=== PATIENT | female | born 1960 | race Caucasian/White ===

== ENCOUNTER 2016-09-12 16:00 | Inpatient (IN) | payer OTHER ==
[~2016-09-12] VITALS: Ht 172.7 cm; Wt 127.0 kg
--- NOTE | ~2016-09-12 | PN ---
Unit #: [id number] #: [id number] Patient: ERICH FIGUEROA [id number] [facility] [address] [place] [address] [id number] I MR#: [id number] NAME: ERICH FIGUEROA ROOM: [facility] Age: 56 Sex: F Admission Date: 09/12/2016 : 1960 Attending Physician: Amanuel Merchant M.D. Admitting Physician: Amanuel Merchant M.D. Primary Care Physician: Primary Care Physician Sangeetha HANSEN PROGRESS NOTES DATE September 17, 2016 DISCUSSION Ms. Figueroa is a 56-year-old white female, who was seen today and chart was reviewed and the case was discussed with the staff. She has been anxious, withdrawn, and rather seclusive to herself. Meanwhile, she has been cooperative with the treatment recommendations, and has been taking the medications and tolerating them fairly well with no reported side effects. MENTAL STATUS EXAMINATION Middle-aged white female, who was casually dressed with fair personal hygiene and appears to be in no acute distress or discomfort. The patient was awake and alert with intact orientation. Her mood is anxious with a congruent affect. The patient denies any suicidal or homicidal ideations. Her insight and judgment remain slightly impaired. TREATMENT PLAN 1. We will continue her on her current medications and treatment protocol, and will monitor her response to the medications, and make further adjustments as needed. 2. We will continue to followup. Dictated by... Paula Wilkins/cecy TD: 09/17/2016 11:10 JOB #: [id number] Unit #: [id number] #: [id number] Patient: ERICH FIGUEROA PROGRESS NOTES Page 1 of 1 X Amanuel Merchant MD PROGRESS NOTE
--- NOTE | ~2016-09-12 | PA ---
Unit #: [id number] #: [id number] Patient: ERICH DODD [id number] [facility] [address] [place] [address] [id number] I MR#: [id number] NAME: ERICH DODD ROOM: P252 Age: 56 Sex: F Admission Date: 09/12/2016 : 1960 Date of Assessment: Attending Physician: Amanuel Merchant M.D. Admitting Physician: Amanuel Merchant M.D. Primary Care Physician: Primary Care Physician No PSYCHIATRIC ASSESSMENT DATE OF SERVICE 09/13/2016. IDENTIFYING DATA Ms. Dodd is a 56-year-old white female, who is a resident of [place], [place], and is known to us from previous encounter and was self-referred to the hospital. CHIEF COMPLAINT "I've been diagnosed with bipolar disorder and I want to ." HISTORY OF PRESENT ILLNESS Ms. Dodd is a 56-year-old white female, who reports that she has been diagnosed with bipolar disorder and borderline personality disorder, in [place], [place], and she has been in [place], [place], since 2009 and has not been on her medication and has been decompensating and does report increasing depression, anxiety, irritability, feelings of hopelessness and helplessness, and suicidal ideations and plan and that she wants to and stated that she does not have any hope and reports having racing thoughts and anxiety and also reports that at times she has grandiose thoughts. She was seen to be a significant danger to self and as such, a recommendation for inpatient level of care for safety and stabilization was made and the patient was transferred to us. SUBSTANCE ABUSE HISTORY The patient reports history of alcohol, cannabis, and cocaine abuse, but denies any current ongoing substance abuse issues. PAST PSYCHIATRIC HISTORY The patient has had a history of inpatient psychiatric hospitalization in [place] and at [facility] and has had outpatient treatment in the past. However, currently, she is not active in any treatment program, is not seeing a psychiatrist, and is not taking any psychotropic medications. PAST MEDICAL HISTORY The patient's medical history is significant for asthma. ALLERGIES Penicillin, sulfa drugs, and latex. CURRENT MEDICATIONS Albuterol. Unit #: [id number] #: [id number] Patient: ERICH DODD PERSONAL AND SOCIAL HISTORY A 56-year-old white female, who reports that she is and single and is currently homeless and has poor social support system. MENTAL STATUS EXAMINATION Middle-aged white female, who was casually dressed with fair personal hygiene, appears to be in no acute distress or discomfort. She was awake and alert on interaction with intact orientation. Her mood was anxious and depressed with a congruent affect. Her speech was slow and restricted in content. Her thought processes were disorganized with some looseness of associations and paranoid ideations and suicidal ideations. Her insight and judgment remain significantly impaired. DIAGNOSTIC IMPRESSION Psychiatric: Bipolar disorder, most recent episode depressed, recurrent, moderate, without psychotic features. Medical: Asthma. Stressors: Moderate psychosocial stressors. TREATMENT PLAN 1. The patient has presented with a history of mood disorder and has been decompensating and will need inpatient hospitalization for safety and stabilization. We will start her back on her home medications. We will adjust the medications and monitor response. 2. Supportive therapy was provided to the patient. 3. Safe, structured, and nourishing environment will be provided. ESTIMATED LENGTH OF STAY 4 to 5 days. ABILITY TO HELP SELF Limited. WILLINGNESS TO HELP SELF The patient appears to be willing to help self. STRENGTHS 1. Communicative. 2. Cooperative. PROBLEMS 1. Chronic dysphoric symptoms. 2. Chronic chemical dependency. 3. Poor social support system. DISCHARGE CRITERIA This will be contingent upon the patient's ability to go through detox without having any significant withdrawal symptoms as well as her ability to stay safe to herself, particularly after discharge from the hospital. Dictated by... Paula Wilkins/andre TD: 09/13/2016 19:16 JOB #: [id number] Unit #: [id number] #: [id number] Patient: ERICH DODD PSYCHIATRIC ASSESSMENT Page 1 of 1 X Amanuel Merchant MD X PSYCHIATRIC ASSESSMENT
--- NOTE | ~2016-09-12 | DS ---
Unit #: [id number] #: [id number] Patient: ERICH DODD [id number] [place] [address] [id number] I MR#: [id number] NAME: ERICH DODD ROOM: [facility] Age: 56 Sex: F Admission Date: 09/12/2016 : 1960 Discharge Date: 09/18/2016 Attending Physician: Amanuel Merchant M.D. DISCHARGE SUMMARY IDENTIFYING DATA Ms. Dodd is a 56-year-old white female who is a resident of [place], [place], and is known to us from previous encounter, who was brought to the hospital on an involuntary basis. DISCHARGE DIAGNOSES PSYCHIATRIC: Bipolar disorder, most recent episode depressed, recurrent, moderate, without psychotic features. MEDICAL: Asthma. STRESSORS: Moderate psychosocial stressors. HISTORY OF PRESENT ILLNESS Same as in initial psychiatric evaluation. PAST PSYCHIATRIC HISTORY Same as in initial psychiatric evaluation. PAST MEDICAL HISTORY Same as in initial psychiatric evaluation. HOSPITAL COURSE The patient was admitted to the adult psychiatric unit at [facility] and was oriented to the hospital environment. Routine p.r.n. medications were initiated, and she was started back on her home medications. Depakote was initiated as a mood stabilizer. Initially, I started her on Celexa, but she stated she has tried that in the past and it does not really help her and she requested Wellbutrin which was started at 150 mg in the morning with good therapeutic outcome without any tolerability issues and as such, we have decided that she will be discharged and will continue treatment on an outpatient basis. DISCHARGE MEDICATIONS 1. Depakote 500 mg twice daily for bipolar. 2. Wellbutrin XL 150 mg in the morning for depression. DISCHARGE CONDITION Stable. PROGNOSIS Fair. Dictated by... Unit #: [id number] #: [id number] Patient: ERICH DODD Amanuel Merchant M.D. IAA/am TD: 09/19/2016 15:55 JOB #: [id number] DISCHARGE SUMMARY Page 1 of 1 X Amanuel Merchant MD X DISCHARGE SUMMARY
--- NOTE | ~2016-09-12 | PN ---
Unit #: [id number] #: [id number] Patient: ERICH FIGUEROA [id number] [facility] [address] [place] [address] [id number] I MR#: [id number] NAME: ERICH FIGUEROA ROOM: [facility] Age: 56 Sex: F Admission Date: 09/12/2016 : 1960 Attending Physician: Amanuel Merchant M.D. Admitting Physician: Amanuel Merchant M.D. Primary Care Physician: Primary Care Physician Sangeetha HANSEN PROGRESS NOTES DATE 09/14/2016 DISCUSSION Ms. Figueroa is a 56-year-old white female with ____ disorder who was seen today and chart was reviewed and case was discussed with the staff. She reports being anxious and depressed and does report feelings of hopelessness and helplessness. Meanwhile, she has been taking medications and tolerating them fairly well with no reported side effects. MENTAL STATUS EXAMINATION Middle-aged white female who was casually dressed with fair personal hygiene and appears to be in no acute distress or discomfort. She was awake and alert on interaction with intact orientation. Her mood was anxious and depressed with congruent affect. Her speech is slow and goal-directed. She reports having suicidal ideation but denies any homicidal ideations. Her insight and judgement remains slightly impaired. TREATMENT PLAN 1. Will continue on current treatment protocol. Will monitor her response to the medications and make further adjustments as needed. 2. Will continue to follow up. Dictated by... Paula Wilkins/venkat TD: 09/14/2016 22:13 JOB #: [id number] Unit #: [id number] #: [id number] Patient: ERICH FIGUEROA PROGRESS NOTES Page 1 of 1 X Amanuel Merchant MD PROGRESS NOTE
--- NOTE | ~2016-09-12 | PN ---
Unit #: [id number] #: [id number] Patient: ERICH FIGUEROA [id number] [facility] [address] [place] [address] [id number] I MR#: [id number] NAME: ERICH FIGUEROA ROOM: [facility] Age: 56 Sex: F Admission Date: 09/12/2016 : 1960 Attending Physician: Amanuel Merchant M.D. Admitting Physician: Amanuel Merchant M.D. Primary Care Physician: Primary Care Physician Sangeetha HANSEN PROGRESS NOTES DATE OF SERVICE 09/16/2016 DISCUSSION Ms. Figueroa is a 56-year-old white female who was seen today. Chart was reviewed and case was discussed with the staff. She has been anxious, withdrawn, depressed, and rather seclusive to herself. Meanwhile, she has been cooperative with treatment recommendations and has been taking the medications and tolerating them fairly well with no reported side effects. MENTAL STATUS EXAMINATION Middle-aged white female who is casually dressed with fair personal hygiene, appears to be in no acute distress or discomfort. She was awake and alert on interaction with intact orientation. Her mood is anxious with a congruent affect. She denies any suicidal or homicidal ideations. Her insight and judgment remain slightly impaired. TREATMENT PLAN 1. We will continue her on her current medications and treatment protocol. We will monitor her response to the medications and make further adjustments as needed. 2. We will continue to follow up. Dictated by... Paula Wilkins/bzg TD: 09/16/2016 14:36 JOB #: [id number] [facility] PROGRESS NOTES Page 1 of 1 X Amanuel Merchant MD PROGRESS NOTE
--- NOTE | ~2016-09-12 | HP ---
Unit #: [id number] #: [id number] Patient: NIYAH FIGUEROA [id number] [facility] [address] [place] [address] [id number] I MR#: [id number] NAME: NIYAH FIGUEROA ROOM: P252 Age: 56 Sex: F Admission Date: 09/12/2016 : 1960 Attending Physician: Amanuel Merchant M.D. Admitting Physician: Amanuel Merchant M.D. Primary Care Physician: Primary Care Physician No HISTORY AND PHYSICAL HISTORY AND PHYSICAL COMPLETED 09/13/2016 HISTORY OF PRESENT ILLNESS Niyah is a 56-year-old female, admitted on 09/12/2016 to [facility] for psychosis. PAST MEDICAL HISTORY 1. Obesity. 2. Endometriosis. 3. Asthma. PAST SURGICAL HISTORY Cholecystectomy and endometrial ablation. SOCIAL HISTORY She smokes one pack of cigarettes daily, reports a history of alcohol use and history of marijuana use. She is currently and homeless. FAMILY HISTORY Noncontributory. REVIEW OF SYSTEMS CONSTITUTIONAL: No fever or chills. HEENT: Denies any sore throat, ear pain or runny nose. CARDIOVASCULAR: Denies chest pain, irregular heart rhythm or palpitations. CHEST: Denies shortness of breath or cough. No hemoptysis. GASTROINTESTINAL: Denies nausea, vomiting, diarrhea or chronic constipation. ENDOCRINE: Denies history of increased thirst or urination. No recent significant weight loss or gain. GENITOURINARY: Denies dysuria, frequency, or hematuria. SKIN: Denies any rashes. HEMATOLOGIC: Denies history of increased bleeding or bruising. MUSCULOSKELETAL: Denies any hot, swollen joints. No generalized muscle pain. NEUROLOGIC: Denies problems with vision or speech. No frequent, severe headaches. No numbness, tingling or weakness in any extremities. Denies loss of bladder or bowel control. CURRENT MEDICATIONS Albuterol inhaler Unit #: [id number] #: [id number] Patient: NIYAH FIGUEROA ALLERGIES Penicillin, sulfa, and latex. PHYSICAL EXAMINATION GENERAL: Alert, oriented, and in no acute distress. VITAL SIGNS: Blood pressure 133/81, heart rate 81, temperature 98.4. HEIGHT: 5 feet 8 inches. WEIGHT: 250 pounds. SKIN: Warm and dry without rash or lesion. HEENT: Normocephalic. TMs not viewed. Oral and nasal passages clear. Conjunctivae clear. PERRLA. EOMs intact. NECK: Supple without lymphadenopathy or thyromegaly. HEART: Regular rate and rhythm without murmur. LUNGS: Clear. ABDOMEN: Soft, nontender. : Not done. EXTREMITIES: No evidence of cyanosis, clubbing or edema. Moves all without focal deficit. NEUROLOGICAL: Grossly within normal limits. Cranial Nerves: II: Visual eller are intact. III, IV AND : Extraocular movements are intact. Pupils are equal, round and reactive to light. V: Facial sensation is grossly normal. VII: Facial movements and expression are normal. VIII: Auditory acuity grossly intact. IX, X: Uvula is midline. Phonation is normal. XI: Patient shrugs shoulders and turns head normally. XII: Tongue protrudes in the midline. Sensory and Motor Function: Sensory and motor sensation is grossly normal. Motor: moves all extremities well. Coordination: Gait is normal. Deep Tendon Reflexes: Intact. IMPRESSION 1. Psychiatric admission. 2. Obesity. 3. Endometriosis. 4. Asthma. RECOMMENDATIONS Psychiatric, per psychiatrist. MEDICAL No contraindications to participating in facility's activities. MEDICAL PROGNOSIS Good. MEDICAL CONDITION Stable. Dictated by... Maddy Law TD: 09/13/2016 12:30 JOB #: [id number] Unit #: [id number] #: [id number] Patient: NIYAH FIGUEROA HISTORY AND PHYSICAL Page 1 of 1 X LEONIDES SIMENTAL APRN X HISTORY AND PHYSICAL
--- NOTE | ~2016-09-12 | CO ---
Unit #: [id number] #: [id number] Patient: ERICH FIGUEROA [id number] [place] [address] [id number] I MR#: [id number] NAME: ERICH FIGUEROA ROOM: [facility] Age: 56 Sex: F Admission Date: 09/12/2016 : 1960 Attending Physician: Amanuel Merchant M.D. Consultation Date: 09/18/2016 CONSULTATION REPORT REASON FOR CONSULTATION Elevated blood pressure. HISTORY OF PRESENT ILLNESS The patient is a 56-year-old, morbidly obese female, whom we were asked to see secondary to elevated blood pressure, systolic ranges have been anywhere from the 130s to 170s. We were asked to evaluate and consideration for possible diagnosis of hypertension and/or further medical management. Upon discussion and review with the patient, she states that she does not really follow up with the primary care physician secondary to insurance issues as well as she feels although she has different positions while she goes to a clinic that only accepts passport. She states that she has a strong family history of coronary artery disease, hypertension, myocardial infarction as well as stroke history. She has no objections to medications, but she states that she formally has not been diagnosed with hypertension. She states that recently she has had increased anxiety while at work. While here, she has been placed on routine medications as per Psychiatry. She feels much better at the present time. She denies any chest pain, headaches, visual changes, and/or any palpitations. She states she has not had a routine physical by primary care physician in several years. FAMILY HISTORY Noted positive for hypertension, coronary artery disease, stroke. HOME MEDICATIONS Did not reveal any hypertensive medications. INITIAL IMPRESSION 1. Likely essential hypertension. 2. Morbid obesity. 3. Underlying mental illness/psychiatric admission. PLAN At this point, my recommendation would be for a low-dose blood pressure medication, perhaps consideration can be given to Norvasc 2.5 mg p.o. daily on a daily basis, given her strong family history as well as positive for genetic predisposition, elevated BMI and certainly with her age being greater than 50. There is 90% chance that she likely will develop hypertension and it would be khoury and pertinent to start antihypertensive medications early. I have discussed the risks and benefits of these medications. She expresses understanding and agreement. I have also reinforced that although we cannot control who she will follow Unit #: [id number] #: [id number] Patient: ERICH FIGUEROA up with as an outpatient, but secondary to insurance reasons. A primary care physician visit at time of discharge within 7 to 10 days to review blood pressures and/or possibly home blood pressure monitor would be advised. She expressed understanding, therefore I will recommend Norvasc 2.5 mg p.o. daily at time of discharge. Dictated by... Paula Jefferson/andre TD: 09/18/2016 17:46 JOB #: [id number] CONSULTATION REPORT Page 1 of 1 X Ramos Valentine MD X CONSULTATION REPORT
--- NOTE | ~2016-09-12 | PN ---
Unit #: [id number] #: [id number] Patient: ERICH FIGUEROA [id number] [facility] [address] [place] [address] [id number] MR#: [id number] NAME: ERICH FIGUEROA ROOM: [facility] Age: 56 Sex: F Admission Date: 09/12/2016 : 1960 Attending Physician: Amanuel Merchant M.D. Admitting Physician: Amanuel Merchant M.D. Primary Care Physician: Primary Care Physician Sangeetha ALDRIDGE NOTES DATE September 15, 2016 DISCUSSION Ms. Figueroa is a 56-year-old white female, with mood disorder, who was seen today and the chart was reviewed and the case was discussed with the staff. She has been anxious, withdrawn, depressed, and rather seclusive to herself and reports not feeling good and she was started on Celexa but she has tried that in the past and it does not work for her, and so she has not been able to see much benefit. And has been expressing persistent feelings of hopelessness and helplessness. However, she has been going to therapy groups and she has been participating. MENTAL STATUS EXAMINATION Middle-aged white female, who was casually dressed with fair personal hygiene and appears to be in no acute distress or discomfort. The patient was awake and alert with impaired attention and concentration. Her mood was anxious and depressed with a congruent affect. The patient reports some suicidal ideation but denies any homicidal ideations. Her insight and judgment remain slightly impaired. TREATMENT PLAN 1. We will continue her on her current medications and treatment protocol, and will monitor her response to the medications, and make further adjustments as needed. 2. We will continue to followup. Dictated by... Paula Wilkins/cecy TD: 09/15/2016 09:11 JOB #: [id number] Unit #: [id number] #: [id number] Patient: ERICH FIGUEROA PROGRESS NOTES Page 1 of 1 X Amanuel Merchant MD PROGRESS NOTE
[2016-09-13 09:41] LABS: BASOPHIL# 0.1 X10e3 (0-0.3); BASOPHIL% 0.9 % (0-2.5); EOSINOPHIL# 0.8 X10e3 (0-0.7); EOSINOPHIL% 8.4 % (0.0-7.0); HEMATOCRIT 36.7 % (35.0-45.0); HEMOGLOBIN 11.3 gm/dL (12.0-16.0); LYMPHOCYTE# 2.7 X10e3 (1.0-3.5); LYMPHOCYTE% 29.6 % (17.0-45.0); MEAN CELL VOLUME 84.5 FL (83-96); MEAN CORPUSCULAR HEMOGLOBIN 26.1 PG (28-34); MEAN CORPUSCULAR HGB CONC 30.9 g/dL (30-36); MEAN PLATELET VOLUME 9.8 FL (6.5-11.5); MONOCYTE# 0.6 X10e3 (0-1.0); MONOCYTE% 6.2 % (3.0-12.0); NEUTROPHIL% 54.9 % (40-75); PLATELET COUNT 277 X10e3 (140-420); RED BLOOD COUNT 4.35 X10e (3.90-5.30); RED CELL DISTRIBUTION WIDTH 16.7 % (11.0-15.5)
[2016-09-13 09:45] LABS: DIFF IND NO
[2016-09-13 10:23] LABS: ALBUMIN SERUM 3.2 g/dL (3.5-5.0); BILIRUBIN,TOTAL 0.5 mg/dL (0.2-2.0); CALCIUM SERUM 8.6 mg/dL (8.4-10.2); GLOM FILT RATE Estimated 63.8 mL/min (>60); POTASSIUM 4.9 mmol/L (3.5-5.1); PROTEIN TOTAL SERUM 5.9 g/dL (6.0-8.3)
[2016-09-14 09:58] LABS: URINE APPEARANCE CLEAR; URINE BILIRUBIN NEG (NEG); URINE BLOOD NEG (NEG); URINE COLOR YELLOW; URINE GLUCOSE NEG (NEG); URINE KETONE NEG (NEG); URINE LEUKOCYTE ESTERASE NEG (NEG); URINE NITRATE NEG (NEG); URINE PH 6.5 (5-8); URINE PROTEIN NEG (NEG); URINE SPECIFIC GRAVITY 1.008 (1.003-1.035); URINE UROBILINOGEN 0.2 MG/DL (NEG)
[2016-09-14 10:40] LABS: AMPHETAMINE NEG (NEG); BARBITURATES NEG (NEG); BENZODIAZEPINES NEG (NEG); COCAINE POS (NEG); MARIJUANA NEG (NEG); OPIATES NEG (NEG); TRICYCLIC ANTIDEPRESSANTS NEG (NEG); U METHADONE NEG (NEG)
== END 2016-09-18 12:15 | disposition home or self-care (01) | DRG 885 ==
LOC: P1E 18:10 → P2L 18:10 → P2S 18:10 → P1E 18:50 → P2L 09-13 11:57
PROVIDERS: Psychiatry & Neurology Psychiatry
DX: F31.32 Bipolar disorder, current episode depressed, moderate (principal); J45.909 Unspecified asthma, uncomplicated; Z88.0 Allergy status to penicillin; Z88.2 Allergy status to sulfonamides; Z91.040 Latex allergy status
CPT/HCPCS: 80053; 80307; 81003; 85025